=== PATIENT | male | born 1995 | race Caucasian/White ===

== ENCOUNTER 2022-06-14 18:00 | Outpatient (RCR) | payer MEDICAID, SELFPAY ==
--- NOTE | 2022-05-23 14:14 | HP.PTEVAL ---
Patient's Visit Information ELI BORRERO is a 26 year old M referred to Physical Therapy by TRUDY Sheriff with a diagnosis of B knee pain. Date of Evaluation: 05/23/22 Physical Therapist: Len Brambila PT, ATC - Visit Plan Frequency: 2-3x /Week Duration: 4-6 Weeks Plan: B LE stretching and strengthening, core stab ex's, bike, and HEP - Subjective Pt reports he has had B knee knee pain for 2-21/2 years. Pt reports this was due to his immediate interest in running. Pt notes he began running at that time short distances, which then turned into 5 k's, half marathons, full marathons, and ultramarathons. Pt reports he did all of that running with not stretching or core strengthening and believes this may be what has caused his pain. Pt denies tingling or numbness in his LE's. pt reports no sleep difficulty secondary to pain. Pt reports he is also beginning to develop B foot pain at this time for unknown cause. Pt reports his goal is to return to running one day soon. Pt reports he has bee riding a bike recently for cardio, but even that has caused an increase in his LE pain. Pt reports he has had x-rays of B knees which reveled lateral tracking of bilateral patellas. 1/10 pain while sitting at rest, 4/10 at worst - Pain B knees Pain Intensity (Out of 10): 1 Pain Intensity Range: 4 - Objective Neuro: B LE sensation is WNL to light touch. B patellar reflex= 2/3. Palpation: Pt has significant crepitus and clunking in R knee. Significant crepitus in L knee. No obvious deformity noticed. ROM: L knee 0-135, R knee 0-130 degrees. MMT: L knee flex= 41, ext= 55; R knee flex= 40, ext= 59#F. Special tests: Pos McConnels sign, 90/90 test (30 degree lag), and tight IT band - Balance/Special Test Scores Lower Extremity Functional Score: 56 - Goals Goal 1:: Decrease B knee pain x 50% to aid with sleep Goal Time Frame: 4-6 Weeks Goal 2:: Increase B hamstring and IT band flexibilty x 20 degrees to aid with decreasing B knee pain Goal Time Frame: 4-6 Weeks Goal 3:: Pt will be able to run for 10 minutes with no pain to aid with his return to running activity without limitation Goal Time Frame: 4-6 Weeks Goal 4:: I with HEP Goal Time Frame: 4-6 Weeks - Rehabilitation Potential Physical Therapy Diagnosis: Pt has B knee pain, limited flexibility, and intolerance for running activity secondary to B patellar femoral pain Rehabilitation Potential: Good - Anticipated Interventions Patient/Client Instruction: Educate patient on: Condition, Plan of Care For the Purpose of:: To decrease pain, To improve muscle performance and motor function Therapeutic Exercise to Include: Strength training, Endurance training, Flexibilty training, Dynamic Lumbar Stabilization For the Purpose of:: To decrease pain, To increase ROM, To improve muscle performance and motor function Cryotherapy (ice pack, ice massage): Yes For the Purpose of:: To decrease pain Thank you for the opportunity to evaluate your patient. For Medicare and Medicare HMO plans, please review the plan of care and approve it. It will need to be FAXED BACK to us at [phone] for Medicare purposes. For Medicare only, by signing this I certify the plan of care. Please let me know if there are questions or concerns regarding this plan of care. Physician Signature: Date:
--- NOTE | 2022-10-19 07:51 | HP.PT.NRP ---
ELI MATT BORRERO was seen in my office for initial evaluation on 05/23/22. The following Plan of Care was established for this patient: Initial Frequency: 2-3x /Week Initial Duration: 4-6 Weeks Patient/Client Instruction: Educate patient on: Condition, Plan of Care For the Purpose of:: To decrease pain, To improve muscle performance and motor function Therapeutic Exercise to Include: Strength training, Endurance training, Flexibilty training, Dynamic Lumbar Stabilization For the Purpose of:: To decrease pain, To increase ROM, To improve muscle performance and motor function Cryotherapy (ice pack, ice massage): Yes For the Purpose of:: To decrease pain This patient was last seen in our office . Pertinent comments regarding their Physical therapy will appear below: Pt was treated for 4 PT visits for B knee pain through the date of 06/14/22. Pt has not returned through todays date and is discontinued at this time. At this point I will be discontinuing this patient from physical therapy. I would be happy to see this patient again in the future if found appropriate by the physician. Thank you! Len Brambila, PT, ATC Balance/Gait/Functional tests - Balance/Special Test Scores Lower Extremity Functional Score: 56
== END 2022-06-14 19:00 | disposition home or self-care (01) ==
LOC: PT 18:00
PROVIDERS: Referring Provider Physician Assistant Surgical; Visit Provider Physician Assistant Surgical
DX: M22.8X2 Other disorders of patella, left knee; M22.8X1 Other disorders of patella, right knee; M25.561 Pain in right knee; M25.562 Pain in left knee
CPT/HCPCS: 97110; 97161